=== PATIENT | male | born 1965 | race Caucasian/White ===

== ENCOUNTER 2018-02-10 09:32 | Day surgery (SDC) | payer OTHER, SELFPAY ==
--- NOTE | 2018-02-10 | LES_PTH ---
PATIENT: MAXIMILIANO NAIR LOC: [facility] [place] U#:[id number] AGE/SX: 52/M ROOM: RE02/10/[address]: Dr. Benjie Yancey MD : [id number] BED: DIS: 02/10/2018 SPEC #: [id number] RECD: 02/10/18 13:09 STATUS: ALEJA VICKIE #: [id number] MARCI: 02/10/18 00:[address]: Benjie Yancey DEPT: SURGICAL PATHOLOGY RECD BY: Alison Echols ENTERED: 02/10/18 14:32 SP TYPE: Lesion OTHR DR: Dr. Octavio Hardy MD Tissues: A - Skin of external ear, NOS B - Skin of external ear, NOS C - Skin of external ear, NOS D - Skin of external ear, NOS E - Skin of external ear, NOS Procedures: Frozen Section (charge) Surgery Specimen Level IV Frozen (no charge) HEADER OPERATION: Excision lesion, FTSG, frozen section, ear PRE-OP DIAGNOSIS: Left ear lesion TISSUE SUBMITTED: A ? Lesion left ear, B ? Margin left ear 12-3 o?clock, C - Margin left ear 3-6 o?clock, D - Margin left ear 6-9 o?clock, E - Margin left ear 9-12 o?clock FROZEN SECTION DIAGNOSIS A. Left ear lesion, biopsy: Basal cell carcinoma. B. Left ear lesion, 12-3 o?clock margin: Negative for carcinoma. C. Left ear lesion, 3-6 o?clock margin: Negative for carcinoma. D. Left ear lesion, 6-9 o?clock margin: Negative for carcinoma. E. Left ear lesion, 9-12 o?clock margin: Negative for carcinoma. LESLIE:eduar 02/10/18 MICROSCOPIC DIAGNOSIS A. Left ear lesion, biopsy: Basal cell carcinoma. B. Left ear lesion, 12-3 o?clock margin: Negative for carcinoma. C. Left ear lesion, 3-6 o?clock margin: Negative for carcinoma. D. Left ear lesion, 6-9 o?clock margin: Negative for carcinoma. E. Left ear lesion, 9-12 o?clock margin: Negative for carcinoma. LESLIE:eduar 02/11/18 MICROSCOPIC DESCRIPTION Slides are reviewed. GROSS DESCRIPTION A - Received fresh for frozen section diagnosis labeled with the patient's name is a specimen designated left ear lesion. The specimen consists of a round piece of walsh-white skin with focal area of ulceration measuring 1 x 1 x 0.2 cm. The specimen is inked, serially sectioned and submitted entirely in one cassette for frozen section diagnosis. B - Received fresh for frozen section diagnosis labeled with the patient's name is a specimen designated 12-3 o?clock margin. The specimen consists of a piece of walsh-white skin measuring 0.5 x 0.1 x 0.1 cm. The entire specimen is submitted for frozen section diagnosis in one cassette. C - Received fresh for frozen section diagnosis labeled with the patient's name is a specimen designated 3-6 o?clock margin. The specimen consists of a piece of walsh-white skin measuring 0.7 x 0.1 x 0.1 cm. The entire specimen is submitted for frozen section diagnosis in one cassette. D - Received fresh for frozen section diagnosis labeled with the patient's name is a specimen designated 6-9 o?clock margin. The specimen consists of a piece of walsh-white skin measuring 0.5 x 0.1 x 0.1 cm. The entire specimen is submitted for frozen section diagnosis in one cassette. E - Received fresh for frozen section diagnosis labeled with the patient's name is a specimen designated 9-12 o?clock margin. The specimen consists of a piece of walsh-white skin measuring 0.5 x 0.1 x 0.1 cm. The entire specimen is submitted for frozen section diagnosis in one cassette. / SJ:eduar 02/10/18 TC:0 CPT: 49857 x5, 85227 x5
[2018-02-10 09:57] VITALS: BP 128/87; PULSE 67; RESP 18; TEMP 36.6; O2SAT 99; BMI 32.1
[2018-02-10] MEDS: Clindamycin 900 MG/50 ML BAG 75 MG IV (12:57)
[2018-02-10] MEDS: Mupirocin Ointment 22gm Tube 1 APPLIC (13:42)
--- NOTE | 2018-02-10 14:17 | PCM.DC ---
You will use the following diet at home:: No restrictions Discharge Activity: Return to Normal Activity Call your doctor if your incision/area has: Increased Pain/ Swelling Additional Dressing/Incision Instructions:: mupirocin to neck incision twice daily. keep the left ear dry until seen in clinic. Allergies/Adverse Reactions: Allergies No Known Allergies Allergy (Verified 02/04/18 09:00) Medications to take at Discharge Esomeprazole Mag Trihydrate [Nexium] 40 mg PO DAILY 03/01/15 Amlodipine [Norvasc] 5 mg PO DAILY 02/04/18 Aspirin E.C. [Ecotrin] 81 mg PO DAILY@0800 02/04/18 Acetaminophen/Codeine #3 [Tylenol#3] 1 tab PO Q6H PRN PRN #10 tab 02/10/18 Cephalexin [Keflex] 500 mg PO BID #10 cap 02/10/18 The following prescriptions were given: Acetaminophen/Codeine #3 [Tylenol#3] 1 tab PO Q6H PRN PRN #10 tab PRN Reason: Pain Cephalexin [Keflex] 500 mg PO BID #10 cap Primary Care Physician: Octavio Hardy MD [Primary Care Provider] - Please Follow Up With: Natanael Yancey MD When: 1 week
[2018-02-10 14:18] VITALS: BP 121/86; BP 128/87; PULSE 70; RESP 16; TEMP 36.5; O2SAT 95
[2018-02-10 14:25] VITALS: BP 123/90; BP 128/87; PULSE 70; RESP 16; O2SAT 70
[2018-02-10 14:30] VITALS: BP 121/88; BP 128/87; PULSE 65; RESP 16; O2SAT 95
[2018-02-10 14:35] VITALS: BP 118/87; BP 128/87; PULSE 68; RESP 16; TEMP 36.7; O2SAT 96
[2018-02-10 15:03] VITALS: BP 128/87
--- NOTE | 2018-02-10 15:03 | PCM.OPRPT ---
Problem List (1) Basal cell carcinoma of left ear Status: Acute Report of Operation Date of Procedure: 02/10/18 Pre-Operative Diagnosis: 1. left ear lesion Post-Operative Diagnosis: 1. left ear basal cell carcinoma 1.5 x 1.5 cm. 2. left ear defect 2.2 x 2.2 cm Surgery/Procedure Performed:: 1. excision 1.5 cm left ear basal cell carcinoma. 2. 2.2 x 2.2 cm full thickness skin graft Type of Anesthesia:: Local MAC Estimated Blood Loss (mL): 1cc Description of Procedure: on the day of the procedure, after appropriate informed consent was obtained, the patient was brought to the operating room and placed in supine position on the operating table. he was placed under MAC anesthesia by the anesthesiologist and the left superior pinna and neck were injected with lidocaine/epinephrine. the left face/neck were prepped and draped in sterile fashion. a robinson blade was used to excise the 1.5 cm lesion of the superior left scapha. this was sent as a frozen section and returned basal cell carcinoma. 4mm circumferential margins were taken with a robinson blade and discarded. four-quadrant 1mm margins were taken and sent to pathology - these all returned negative. the final defect was 2.2 x 2.2 centimeters. a #15 blade was used to take a 3 x 2cm elliptical full thickness skin graft. the defect was undermined and closed with 4-0 vicryl and 5-0 fast gut. the graft was thinned and trimmed accordingly and sutured to the scaphoid defect with 4-0 chromic and 5-0 fast gut. the graft was pie-crusted and several through and through sutures were placed. a bolster was sutured. the patient was awoken from anesthesia and transferred to the PACU in stable condition.
--- NOTE | 2018-02-10 15:13 | OP.PCM_ITS ---
Problem List (1) Basal cell carcinoma of left ear Status: Acute Report of Operation Date of Procedure: 02/10/18 Pre-Operative Diagnosis: 1. left ear lesion Post-Operative Diagnosis: 1. left ear basal cell carcinoma 1.5 x 1.5 cm. 2. left ear defect 2.2 x 2.2 cm Surgery/Procedure Performed:: 1. excision 1.5 cm left ear basal cell carcinoma. 2. 2.2 x 2.2 cm full thickness skin graft Type of Anesthesia:: Local MAC Estimated Blood Loss (mL): 1cc Description of Procedure: on the day of the procedure, after appropriate informed consent was obtained, the patient was brought to the operating room and placed in supine position on the operating table. he was placed under MAC anesthesia by the anesthesiologist and the left superior pinna and neck were injected with lidocaine/epinephrine. the left face/neck were prepped and draped in sterile fashion. a blackfeet blade was used to excise the 1.5 cm lesion of the superior left scapha. this was sent as a frozen section and returned basal cell carcinoma. 4mm circumferential margins were taken with a blackfeet blade and discarded. four-quadrant 1mm margins were taken and sent to pathology - these all returned negative. the final defect was 2.2 x 2.2 centimeters. a #15 blade was used to take a 3 x 2cm elliptical full thickness skin graft. the defect was undermined and closed with 4-0 vicryl and 5-0 fast gut. the graft was thinned and trimmed accordingly and sutured to the scaphoid defect with 4-0 chromic and 5-0 fast gut. the graft was pie-crusted and several through and through sutures were placed. a bolster was sutured. the patient was awoken from anesthesia and transferred to the PACU in stable condition.
== END 2018-02-10 15:05 | disposition home or self-care (01) ==
LOC: SDC 09:33 → AC 09:35
PROVIDERS: Family Provider Family Medicine; PCP Family Medicine; Visit Provider Otolaryngology
PROC: (CPT 14040; principal; 2018-02-10 10:50)
DX: C44.219 Basal cell carcinoma of skin of left ear and external auricular canal (principal); I10 Essential (primary) hypertension; K21.9 Gastro-esophageal reflux disease without esophagitis; Z86.711 Personal history of pulmonary embolism; Z87.891 Personal history of nicotine dependence; Z79.82 Long term (current) use of aspirin; Z79.899 Other long term (current) drug therapy
CPT/HCPCS: 00300; 14040; 88305; 88331; J7120

== ENCOUNTER → 2018-04-25 09:02 | Outpatient (CLI) | payer OTHER, SELFPAY ==
[2018-04-25 09:37] LABS: Absolute Lymphocyte Count 1.62 X10^3/ul (0.83-4.51); Basophil# 0.01 X10^3/uL; Basophil% 0.2 % (0-1); Eosinophil# 0.15 X10^3/uL; Eosinophils% 2.5 % (0-5); Hematocrit 45.6 % (40-54); Hemoglobin 14.9 g/dl (13.0-16.5); Lymphocyte # 1.62 X10^3/ul (4.0); Lymphocyte % 26.6 % (19-41); Mean Corp Hgb Conc 32.7 g/gl (32-36); Mean Corpuscular Hgb 30.3 pg (27.0-32.0); Mean Corpuscular Volume 92.7 fL (80-94); Mean Platelet Vol. 8.7 fl (6.2-12.0); Monocyte# 0.28 X10^3/uL; Monocyte% 4.6 % (0-10); Neutrophil # 4.03 X10^3/uL (2.7-7.7); Neutrophil % 65.9 % (47-70); Platelet Count 177 K/mm3 (150-450); RBC Distribution Width CV 14.1 % (11.6-14.6); RBC Distribution Width SD 47.3 fl (35.1-43.9); Red Blood Count 4.92 M/mm3 (4.6-6.2); White Blood Count 6.1 K/mm3 (4.4-11.0)
[2018-04-25 09:43] LABS: POSITIVE COUNT NO; POSITIVE DIFFERENTIAL NO; POSITIVE MORPHOLOGY NO
[2018-04-25 10:00] LABS: ALB/GLOB Ratio 1.1 RATIO (0.9-2.4); AST(SGOT) 23 U/L (15-37); Alanine Aminotransfer ALT/SGPT 34 U/L (16-61); Albumin, Serum 3.6 g/dL (3.2-5.0); Alkaline Phosphatase 89 U/L (45-117); Anion Gap 6 (5-15); BUN 12 mg/dL (7-18); BUN/Creat Ratio 12.2 RATIO (10-20); CRP 5.43 mg/L (0.0-3.0); Calcium,Total 8.1 mg/dL (8.5-10.1); Chloride 108 mmol/L (98-107); Creatinine, Serum 0.98 mg/dL (0.70-1.30); EST Glomerular Filtration Rate 84 mL/min (>60); Est Glom Filt Rate - Afr Amer 102 mL/min (>60); Globulin 3.4 g/dL (2.2-4.2); Glucose 101 mg/dL (74-106); Potassium 4.2 mmol/L (3.5-5.1); Rheumatoid Factor < 10.0 IU/mL (<15); Sodium Level 139 mmol/L (136-145); Uric Acid 6.2 mg/dL (3.5-7.2)
[2018-04-25 10:11] LABS: Erythrocyte Sedimentation Rate 4 mm/hr (0-20)
[2018-04-29 13:10] LABS: ANTINUCLEAR ANTIBODIES DIRECT Negative (Negative)
[2018-05-01 13:30] LABS: Lyme Ab Screen Interpretation REF LAB; Lyme Scn Total Ab w/Rflx REF LAB
[2018-05-05 08:59] LABS: HLA B27 Negative (.)
== END ==
PROVIDERS: Family Provider Family Medicine; PCP Family Medicine; Visit Provider Podiatrist
DX: M72.2 Plantar fascial fibromatosis (principal); M19.90 Unspecified osteoarthritis, unspecified site
CPT/HCPCS: 36415; 80053; 81374; 82306; 84550; 85025; 85652; 86038; 86140; 86431; 86618